=== PATIENT | female | born 1960 | race Caucasian/White ===

== ENCOUNTER 2023-04-24 12:57 | Emergency (ER) | payer OTHER ==
[~2023-04-24] VITALS: Ht 167.6 cm; Wt 61.2 kg
[2023-04-24 14:28] LABS: HEMATOCRIT 40.5 % (35.0-50.0); HEMOGLOBIN 13.8 g/dL (12.0-18.0); MCH 30.2 (27-36); MCV 88.7 fl (81-99); PLATELET COUNT 437 K/uL (140-440); RBC 4.57 M/ul (4.3-5.7); RDW 13.6 (10.5-15.0)
[2023-04-24 14:46] LABS: ACETAMINOPHEN 0 ug/mL (10-30); ALBUMIN 4.4 g/dL (3.4-5.0); ALBUMIN/GLOBULIN RATIO 1.19 (1.1-2.4); ALCOHOL, MEDICAL <3 ng/dL (<3); ALKALINE PHOSPHATASE 83 U/L (46-116); ALT (SGPT) 23 U/L (14-59); ANION GAP 18.8 (7-21); AST (SGOT) 35 U/L (15-37); BILIRUBIN, TOTAL 0.7 ng/dL (0.2-1.0); BUN/CREATININE RATIO 14.75 (6.0-28.6); CALCIUM 9.7 mg/dL (8.5-10.1); CARBON DIOXIDE 26 mmol/L (21-32); CHLORIDE 101 mmol/L (98-107); CREATININE, SERUM 1.83 mg/dL (0.55-1.02); GLOMERULAR FILTRATION RATE,EST 32 mL/min (>60); POTASSIUM 2.8 mmol/L (3.5-5.1); PROTEIN, TOTAL 8.1 g/dL (6.4-8.2); SALICYLATE 5.5 mg/dL (2.8-20.0); TSH, 3RD GENERATION 0.627 uIU/mL (0.358-3.740); UREA NITROGEN 27 mg/dL (7-18)
[2023-04-24 14:48] LABS: LYMPHOCYTES, MANUAL DIFF 17; MONOCYTES, MANUAL DIFF 5; NEUTROPHILS, MANUAL DIFF 78
[2023-04-24 15:50] LABS: BILIRUBIN, URINE POSITIVE (negative); BLOOD/HGB, URINE SMALL (Negative); KETONE, URINE SMALL (Negative); LEUK ESTERASE, URINE SMALL (negative); NITRITE, URINE POSITIVE (negative); PH, URINE 5.5 (5-7)
[2023-04-24 15:54] LABS: AMPHETAMINES, UR NEGATIVE (NEGATIVE); BARBITURATES, UR NEGATIVE (NEGATIVE); BENZODIAZEPINES, UR NEGATIVE (NEGATIVE); BUPRENORPHINE,UR NEGATIVE (NEGATIVE); COCAINE, UR POSITIVE (NEGATIVE); MARIJUANA (THC), UR POSITIVE (NEGATIVE); MDMA, UR NEGATIVE (NEGATIVE); METHADONE, UR NEGATIVE (NEGATIVE); METHAMPHETAMINE, UR NEGATIVE (NEGATIVE); OPIATES, UR NEGATIVE (NEGATIVE); OXYCODONE, UR NEGATIVE (NEGATIVE); PHENCYCLIDINE, UR NEGATIVE (NEGATIVE); TRICYCLIC ANTIDEPRESSANT, UR NEGATIVE (NEGATIVE)
[2023-04-24 15:57] LABS: EPITHELIAL CELLS, URINE SQUAMOUS 2+ /lpf (0-1+)
[2023-04-24 15:58] LABS: BACTERIA, URINE 2+ /hpf (negative); CASTS, URINE HYALINE 2+ \\lpf; COLLECTION TYPE, URINE CLEAN CATCH; CRYSTALS, URINE NONE SEEN (0-1+); REFLEX CULTURE, URINE No (No)
[2023-04-24] MEDS ORDERED: PAXLOVID 300-11 EACH PO (15:58)
[2023-04-25 07:07] LABS: BASOPHILS 0.3 % (0-2); EOSINOPHILS 0.8 % (0-6); HEMATOCRIT 39.1 % (35.0-50.0); HEMOGLOBIN 13.4 g/dL (12.0-18.0); LYMPHOCYTES 26.8 % (24-44); MCH 30.6 (27-36); MCHC 34.2 g/dl (30-36); MCV 89.5 fl (81-99); MONOCYTES 10.1 % (0-12); PLATELET COUNT 346 K/uL (140-440); RBC 4.37 M/ul (4.3-5.7); RDW 14.1 (10.5-15.0)
[2023-04-25 07:15] LABS: ANION GAP 15.3 (7-21); BUN/CREATININE RATIO 32.25 (6.0-28.6); CREATININE, SERUM 0.93 mg/dL (0.55-1.02); POTASSIUM 3.3 mmol/L (3.5-5.1)
[2023-04-25] MEDS ORDERED: ZYPREXA5 MG PO (11:03)
[2023-04-25 11:11] VITALS: BP 119/79
== END 2023-04-25 11:11 | disposition home or self-care (01) ==
LOC: ED 12:57 → EDBD 12:58 → ED 12:58
PROVIDERS: Emergency Medicine; Internal Medicine
DX: F20.9 Schizophrenia, unspecified (principal); I10 Essential (primary) hypertension; E87.6 Hypokalemia
CPT/HCPCS: 36415; 80048; 80053; 81001; 84443; 85025; 99285; A9270; G0480